=== PATIENT | male | born 2000 | race Caucasian/White ===

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

== ENCOUNTER 2021-11-01 11:32 | Emergency (ER) | payer OTHER, SELFPAY ==
[2021-11-01 11:36] VITALS: BP 121/71; PULSE 62; RESP 17; TEMP 36.6; O2SAT 99
--- NOTE | 2021-11-01 12:06 | DI.RAD_ITS ---
Exam(s) XR FINGER RT RING EXAM: XR FINGER RT RING CLINICAL HISTORY: crush injury. TECHNIQUE: 2D digital imaging was performed of the right finger. Three views were obtained. PA/AP, oblique, and lateral views were obtained. COMPARISON: No exams were available for comparison FINDINGS: BONES: There is a 1.5 mm density in the soft tissues medial to the head of the distal phalanx of the ring finger. This may be associated with the nail or possible foreign body. The underlying bone andrew ears intact. No fractures identified. No bony destructive lesion is seen. JOINTS: No dislocation present. SOFT TISSUE: There is soft tissue swelling of the distal aspect of the right ring finger. IMPRESSION: 1. Tiny 1.5 is identified. Mm density in the soft tissues medial to the head of the distal phalanx o f the right ring finger. This may represent a foreign body. 2. The underlying bone appears intact. No definite fracture or dislocation 3. Soft tissue swelling of the distal right ring finger. DATA REPOSITORY: RADIATION DOSE DELIVERED:
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
== END 2021-11-01 13:04 | disposition home or self-care (01) ==
PROVIDERS: Emergency Provider Nurse Practitioner Family
DX: S67.194A Crushing injury of right ring finger, initial encounter (principal); S61.214A Laceration without foreign body of right ring finger without damage to nail, initial encounter; X58.XXXA Exposure to other specified factors, initial encounter
CPT/HCPCS: 12001; 99283; 73140

== ENCOUNTER 2021-11-08 21:04 | Emergency (ER) | payer OTHER, SELFPAY ==
[2021-11-08 21:10] VITALS: BP 130/80; PULSE 80; RESP 17; TEMP 36.6; O2SAT 98
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
== END 2021-11-08 21:47 | disposition home or self-care (01) ==
PROVIDERS: Emergency Provider Student in an Organized Health Care Education/Training Program
DX: S61.214D Laceration without foreign body of right ring finger without damage to nail, subsequent encounter (principal); X58.XXXD Exposure to other specified factors, subsequent encounter
CPT/HCPCS: 99281

== ENCOUNTER 2023-12-02 22:39 | Outpatient (REF) | payer SELFPAY ==
[2023-12-02 21:14] LABS: Abs Immature Grans 0.02 10^3/uL (0.0-0.06); Absolute Basophil Count 0.03 10^3/uL (0.0-0.2); Absolute Eosinophil Count 0.06 10^3/uL (0.0-0.7); Absolute Lymphocyte Count 2.41 10^3/uL (1.2-3.4); Absolute Monocyte Count 0.46 10^3/uL (0.1-0.8); Absolute Neutrophil Count 4.28 10^3/uL (1.2-6.7); Basophils % 0.4 %; Eosinophils % 0.8 %; HCT 47.6 % (40.0-50.0); HGB 16.8 g/dL (13.5-17.5); Immature Grans % 0.3 %; Lymphocytes % 33.2 %; MCH 32.3 pg (27.0-33.0); MCHC 35.3 % (32.0-36.0); MCV 92 fL (80-95); MPV 9.6 fL (8.0-11.0); Monocytes % 6.3 %; Platelet Count 289 10^3/uL (130-400); RDW 11.6 % (11.8-14.1); WBC 7.26 10^3/uL (4.4-10.8)
[2023-12-02 21:22] LABS: ALT 38 U/L (16-63); AST 24 U/L (15-37); Albumin 4.6 g/dL (3.4-5.0); Alkaline Phosphatase 80 U/L (46-116); Anion Gap 8.2 mmol/L (3-11); BUN 16 mg/dL (7-18); Bilirubin, Total 0.59 mg/dL (0.2-1.0); CO2 29.8 mmol/L (21.0-32.0); CREATININE 0.9 mg/dL (0.70-1.30); Calcium 9.1 mg/dL (8.5-10.1); Chloride 102 mmol/L (98-107); Estimated GFR 122.31 (mL/min/1.73m2); Glucose 78 mg/dL (74-106); Potassium 4.6 mmol/L (3.5-5.1); Sodium 140 mmol/L (136-145); Total Protein 7.7 g/dL (6.4-8.2)
== END 2023-12-02 22:40 | disposition home or self-care (01) ==
LOC: LBN 22:39
PROVIDERS: Visit Provider Emergency Medicine Emergency Medical Services
DX: R42 Dizziness and giddiness (principal)
CPT/HCPCS: 80053; 85025

== ENCOUNTER 2024-03-10 18:27 | Emergency (ER) | payer SELFPAY ==
--- NOTE | 2024-03-10 18:30 | RT.EKG_ITS ---
APPROVED REPORT Exam: Resting ECG Reason for Exam: CP Patient Location: E HR:76 bpm ECG Measurements Heart Rate 76 AXIS OK 176 P 44 QRSd 114 QRS -66 QT 384 T 51 QTc 430 Conclusion Sinus rhythm, rate 76 No interval abnormalities No STEMI
[2024-03-10 18:33] VITALS: BP 121/69; PULSE 82; RESP 18; O2SAT 97
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
--- NOTE | 2024-03-10 19:00 | DI.RAD_ITS ---
Exam(s) XR CHEST 2V PA LATERAL EXAM: XR CHEST 2V PA LATERAL CLINICAL HISTORY: cough with lower rib discomfort TECHNIQUE: 2D digital imaging was performed. Two views. COMPARISON: CT CT CHEST/ABD/PEL W from 06/11/2018 FINDINGS: HEART: Normal size. Aorta: Not dilated. PULMONARY VASCULATURE: Normal. MEDIASTINUM: Unremarkable. LUNGS: Clear. PLEURAL SPACE: No pleural effusion or pneumothorax. BONE:Unremarkable for age. SOFT TISSUES: Unremarkable. IMPRESSION: No acute abnormality. DATA REPOSITORY: RADIATION DOSE DELIVERED:
[2024-03-10 19:43] VITALS: RESP 18
--- NOTE | 2024-03-10 20:14 | DI.VRAD_ITS ---
PROCEDURE INFORMATION: Exam: XR Chest Exam date and time: 03/10/2024 7:54 PM Age: 23 years old Clinical indication: Cough; Additional info: Cough with lower rib discomfort TECHNIQUE: Imaging protocol: Radiologic exam of the chest. Views: 2 views. COMPARISON: CT CHEST/ABD/PEL W 06/11/2018 7:27 PM FINDINGS: Lungs: No airspace consolidation. No significant interstitial disease for the degree of inflation. Pleural spaces: No pleural effusion. No pneumothorax. Heart/Mediastinum: No cardiomegaly. Bones/joints: No acute fracture. IMPRESSION: No acute cardiopulmonary pathology. Dictated and Authenticated by: Leona Crockett MD. Ordering:ZAKIYA Sellers MD
== END 2024-03-10 20:21 | disposition home or self-care (01) ==
PROVIDERS: Emergency Provider Nurse Practitioner Family
DX: R05.1 Acute cough (principal); R42 Dizziness and giddiness; B34.9 Viral infection, unspecified
CPT/HCPCS: 93005; 99284; 71046; 93010; 99283